=== PATIENT | female | born 1955 | race African-American/Black ===

== ENCOUNTER 2018-05-26 20:00 | Emergency (ER) | payer SELFPAY ==
[~2018-05-26] VITALS: Ht 165.1 cm; Wt 61.5 kg
[2018-05-26] MEDS ORDERED: HYDROCODONE/ACETAMINOPHEN 5/325MG TABLET PO ONE (23:00)
[2018-05-26 23:25] VITALS: BP 156/92
== END 2018-05-26 23:28 | disposition home or self-care (01) ==
LOC: ER 20:55
DX: S52.612A Displaced fracture of left ulna styloid process, initial encounter for closed fracture (principal); S62.397A Other fracture of fifth metacarpal bone, left hand, initial encounter for closed fracture; J45.909 Unspecified asthma, uncomplicated; I10 Essential (primary) hypertension; W01.0XXA Fall on same level from slipping, tripping and stumbling without subsequent striking against object, initial encounter; Y93.89 Activity, other specified; Y92.89 Other specified places as the place of occurrence of the external cause; Y99.8 Other external cause status; Z88.0 Allergy status to penicillin
CPT/HCPCS: 29125; 73110; 73130; 99284